=== PATIENT | female | born 1950 | race Caucasian/White ===

== ENCOUNTER 2017-03-27 16:16 | Inpatient (IN) | payer OTHER, BC ==
[~2017-03-27] VITALS: Ht 162.6 cm; Wt 77.6 kg
[2017-03-27 16:16] VITALS: BP_SYST 159
--- NOTE | 2017-03-27 16:16 | NUR ---
Pt was brought to bed 2 by ACLS and report was endorsed by Andrew CHAMPAGNE
--- NOTE | 2017-03-27 16:16 | NUR ---
Pt recieved 1 spray nitro SL and 162mg ASA PO by EMS
--- NOTE | 2017-03-27 16:19 | NUR ---
MILDRED López at bedside examining patient.
[2017-03-27] MEDS ORDERED: ADENOSINE 6MG/2ML VIAL ONE (16:32)
--- NOTE | 2017-03-27 16:36 | NUR ---
Pt was brought in by ACLS, complaining of nausea, dull chest pain that radiates to shoulders and jaw. Pt denies SOB. While on the way home, chest pain became worse and stopped at firehouse. Pt was given 1 Nitro and 162mg of Aspirin en route. Pt was in SVT on arrival. Dr. Mixon is at bedside monitoring patient. No other injuries/complaints per pt or noted.
[2017-03-27] MEDS ORDERED: ADENOSINE 6MG/2ML VIAL IVP ONE (16:45)
[2017-03-27] MEDS ORDERED: NACL 0.9% 1,000 ML IV ONE (16:45)
--- NOTE | 2017-03-27 16:54 | NUR ---
Xray is at bedside.
[2017-03-27 17:01] LABS: BASOPHILS # (AUTO) 0.1 K/uL (0.0-0.2); BASOPHILS % (AUTO) 0.9 % (0.0-2.0); EOSINOPHILS # (AUTO) 0.1 K/uL (0.0-0.4); EOSINOPHILS % (AUTO) 1.1 % (0.0-4.0); HEMATOCRIT 39.9 % (36-48); HEMOGLOBIN 13.2 g/dL (12.0-16.0); LYMPHOCYTES # (AUTO) 1.6 K/uL (1.0-5.5); LYMPHOCYTES % (AUTO) 24.8 % (20.5-51.5); MEAN CORPUSCULAR HEMOGLOBIN 28 pg (27-31); MEAN CORPUSCULAR HGB CONC 33 % (32-36); MEAN CORPUSCULAR VOLUME 84 fL (79.0-98.0); MONOCYTES # (AUTO) 0.3 K/uL (0.0-1.0); MONOCYTES % (AUTO) 5.4 % (1.7-9.3); NEUTROPHILS # (AUTO) 4.3 K/uL (1.8-7.7); NEUTROPHILS % (AUTO) 67.8 % (40.0-70.0); PLATELET COUNT (AUTO) 181 K/uL (130-430); RED BLOOD CELL COUNT(AUTO) 4.74 MIL/uL (4.2-6.2); RED CELL DISTRIBUTION WIDTH 12.9 % (9.0-15.0); WHITE BLOOD COUNT (AUTO) 6.4 K/uL (4.8-10.8)
--- NOTE | 2017-03-27 17:21 | NUR ---
Pt resting comfortably in bed, at bedside.
[2017-03-27 17:24] LABS: CALCIUM 8.8 mg/dL (8.4-11.0); CREATININE 0.78 mg/dL (0.55-1.30); POTASSIUM 3.4 mmol/L (3.5-5.1)
[2017-03-27 17:44] LABS: ALBUMIN 3.9 g/dL (3.4-4.8); TOTAL BILIRUBIN 0.3 mg/dL (0.0-1.0)
[2017-03-27 17:50] LABS: BILIRUBIN,URINE NEGATIVE (NEGATIVE); CLARITY/URINE CLEAR (CLEAR); COLOR,URINE YELLOW (YELLOW); GLUCOSE,URINE NEGATIVE (NEGATIVE); KETONES,URINE NEGATIVE (NEGATIVE); LEUKOCYTE ESTERASE ,URINE 1+ (NEGATIVE); NITRITE, URINE NEGATIVE (NEGATIVE); PH,URINE 5.5 (5.0-8.0); PROTEIN URINE NEGATIVE (NEGATIVE); UROBILINOGEN,URINE 0.2 (0.2-1.0)
--- NOTE | 2017-03-27 18:00 | NUR ---
Pt ambulate to the restroom in stable condition with no noted distress or discomfort.
[2017-03-27 18:01] LABS: BLOOD, URINE TRACE (NEGATIVE)
[2017-03-27] MEDS ORDERED: HYDR25TA4 PO (18:01)
[2017-03-27] MEDS ORDERED: POTA-118 PO (18:01)
[2017-03-27] MEDS ORDERED: ATEN-41 PO (18:01)
[2017-03-27 18:09] LABS: BACTERIA,URINE FEW /HPF (None Seen)
--- NOTE | 2017-03-27 18:11 | NUR ---
Patient will be admitted to care of Dr. Carroll. Admitted to Telemetry unit. Will go to room 135. Belongings list completed. Summary report printed. Report will be given at bedside.
--- NOTE | 2017-03-27 18:17 | NUR ---
ADMISSION NOTE Received patient from ER via guy. Report received from Jo-Ann CHAMPAGNE. Patient admitted with diagnosis of SVT under the care of Dr. Carroll . Patient is awake, alert, oriented X . Patient oriented to hospital room, call light, toileting, pain management and safety-teach back done. Patient informed that will be nurse and that their room number is . Personal belongings checked and Belongings List documented. Call light within reach.
[2017-03-27 18:24] VITALS: BP_SYST 138
--- NOTE | 2017-03-27 18:45 | NUR ---
CLOSING NOTE PT AWAKE, ALERT AND ORIENTED X4, PT DENIES ANY DIZZINESS, CHEST PAIN OR PRESSURE AT THIS TIME, TELEMONITOR READS SINUS RHYTHM, ALL NEEDS ATTENDED TO, SAFETY MEASURES MAINTAINED, CALL LIGHT WITHIN REACH, WILL GIVE REPORT TO FOLLOWING SHIFT
[2017-03-27 19:30] VITALS: BP_SYST 132
--- NOTE | 2017-03-27 19:40 | NUR ---
NOTES RECEIVED THE PT FROM THE DAY NURSE.PT A/A/OX4 NO C/O PAIN OR DISCOMFORT.MONITOR SHOWS SR .PT MOVED TO ROOM 109C DUE TO ROOM MATE CRYING. IV INTACT TO LT HAND ,NO REDNESS OR SWELLING NOTED.FAMILY ARE AT THE BEDSIDE.CALL LIGHT WITHIN REACH SAFETY MEASURES IN PROGRESS.WILL CONTINUE TO MONITOR.
[2017-03-27] MEDS ORDERED: MORPHINE 2 MG/ML INJ. SYRINGE IVP PRN ×2 (20:15)
[2017-03-27] MEDS ORDERED: MAGNESIUM SULFATE 50 ML IV PRN (20:15)
[2017-03-27] MEDS ORDERED: POTASSIUM CHLORIDE 10 MEQ TAB.PRT.SR PO PRN (20:15)
[2017-03-27] MEDS ORDERED: LORazepam 2 MG/ML VIAL IVP PRN (20:15)
[2017-03-27] MEDS ORDERED: ACETAMINOPHEN 325 MG TABLET PO PRN (20:15)
[2017-03-27] MEDS ORDERED: DOCUSATE SODIUM 100 MG CAPSULE PO PRN (20:15)
[2017-03-27] MEDS ORDERED: ONDANSETRON HCL 4 MG/2 ML VIAL IVP PRN (20:15)
[2017-03-27] MEDS ORDERED: ZOLPIDEM TARTRATE 5 MG TABLET PO PRN (20:15)
[2017-03-27] MEDS: HEPARIN SODIUM,PORCINE 5000 UNITS/ML VIAL SUBCUT SCH (21:00)
--- NOTE | 2017-03-27 21:30 | NUR ---
NOTES PT REFUSING THE HEPARIN.
[2017-03-27] MEDS ORDERED: cefTRIAXone 1 GM VIAL ONE (22:16)
[2017-03-27] MEDS: cefTRIAXone 1 GM in D5W 50 ML IV SCH (22:20)
--- NOTE | 2017-03-27 23:05 | NUR ---
CONSULT REASON-- SVT/ELEVATED TROPONIN FOR DOCTOR MARY SPOKE WITH ASHISH
--- NOTE | 2017-03-27 23:41 | NUR ---
NOTES PT RESTING WITH EYES CLOSED,CALL LIGHT WITHIN REACH.CONTINUE TO MONITOR.
[2017-03-28] VITALS (7 sets, daily range): BP systolic 129–150
--- NOTE | 2017-03-28 01:32 | NUR ---
NOTES PT SLEEPING,CALL LIGHT WITHIN REACH.CONTINUE TO MONITOR.
--- NOTE | 2017-03-28 03:50 | NUR ---
notes pt remains asleep,call light within reach.continue to monitor.
--- NOTE | 2017-03-28 05:26 | NUR ---
NOTES PT CONTINUES TO SLEEP.
--- NOTE | 2017-03-28 06:08 | NUR ---
CLOSING NOTES PT REMAINS ASLEEP,WILL ENDORSE THE CARE OF THE PT TO THE DAY NURSE.
[2017-03-28 07:00] LABS: BASOPHILS % (AUTO) 0.6 % (0.0-2.0); EOSINOPHILS # (AUTO) 0.1 K/uL (0.0-0.4); EOSINOPHILS % (AUTO) 0.9 % (0.0-4.0); HEMATOCRIT 36.1 % (36-48); HEMOGLOBIN 12.3 g/dL (12.0-16.0); LYMPHOCYTES % (AUTO) 26.3 % (20.5-51.5); MEAN CORPUSCULAR HEMOGLOBIN 28 pg (27-31); MEAN CORPUSCULAR HGB CONC 34 % (32-36); MEAN CORPUSCULAR VOLUME 83 fL (79.0-98.0); MONOCYTES # (AUTO) 0.4 K/uL (0.0-1.0); MONOCYTES % (AUTO) 5.2 % (1.7-9.3); NEUTROPHILS # (AUTO) 5.2 K/uL (1.8-7.7); PLATELET COUNT (AUTO) 190 K/uL (130-430); RED BLOOD CELL COUNT(AUTO) 4.38 MIL/uL (4.2-6.2); RED CELL DISTRIBUTION WIDTH 12.8 % (9.0-15.0); WHITE BLOOD COUNT (AUTO) 7.7 K/uL (4.8-10.8)
[2017-03-28 07:10] LABS: CALCIUM 8.9 mg/dL (8.4-11.0); CREATININE 0.61 mg/dL (0.55-1.30); POTASSIUM 3.8 mmol/L (3.5-5.1)
--- NOTE | 2017-03-28 07:30 | NUR ---
INITIAL ROUNDS Received pt AAOx4, no s/s resp distress, no c/o chest pain or chest discomfort, no c/o pain. Plan of care for the day reviewed with pt-she verbalized her understanding. Pt observed ambulating in the room with steady gait. Pain management, SVT, skin and safety discussed-teach back done. Contact phone number explained, call light within reach.
[2017-03-28] MEDS: HEPARIN SODIUM,PORCINE 5000 UNITS/ML VIAL SUBCUT SCH ×3 (09:00→20:44)
[2017-03-28] MEDS: ATENOLOL 50 MG TABLET (TENORMIN) PO SCH (09:25)
--- NOTE | 2017-03-28 09:40 | NUR ---
ELEVATED HEART RATE At 0935 pt called nurse stated she was feeling "lightheaded & strange"-also called by telemetry monitor for pt's elevated heart rate. Pt's BP 161/93, HR 153, SAO2 96 % on room air-note pt given 50 mg Tenormin as ordered. Pt now with heart rate 80, no further c/o feeling lightheadedness. Will inform MD. Pt's at bedside. Call light within reach.
--- NOTE | 2017-03-28 10:30 | NUR ---
Follow up cardiac consult with Dr. Aguirre called in the exchange.
--- NOTE | 2017-03-28 13:36 | NUR ---
ROUNDS Pt sitting up in bed visiting with her family, no c/o lightheadedness or heart palpitations. No c/o pain or discomfort. Call light within reach.
--- NOTE | 2017-03-28 15:46 | NUR ---
ECHO Pt now receiving 2D ECHO form research laboratory technician with no s/s resp distress, no c/o pain or discomfort. Pt seen by Dr. Villavicencio-lead oxide mill tender, new orders noted.
--- NOTE | 2017-03-28 18:12 | NUR ---
CLOSING NOTE Pt sitting up in bed visiting with her , no s/s resp distress, no c/o chest pain or discomfort, no c/o lightheadedness. Pt informed of need to not eat or drink anything after midnight for stress test in the morning-she verbalized her understanding. Needs met, call light within reach.
--- NOTE | 2017-03-28 19:30 | NUR ---
notes received the pt from the day nurse.pt a/a/ox4. will be npo after midnight .iv intact to lt hand .family are at the bedside.monitor intact and shows sr. call light within reach .will continue to monitor.
--- NOTE | 2017-03-28 21:08 | NUR ---
NOTES PT WATCHING TV WITH NO COMPLAINTS.CONTINUE TO MONITOR.
[2017-03-28] MEDS: cefTRIAXone 1 GM in D5W 50 ML IV SCH (21:09)
--- NOTE | 2017-03-28 21:22 | NUR ---
paged paged for Dr Villavicencio, dialed . s/w Leia, stated that Dr Kline is on-call.
--- NOTE | 2017-03-28 21:22 | NUR ---
NOTES LAB CALLED WITH A CRITICAL TROPONIN OF [phone].CALL PLACED TO DR HAN.
--- NOTE | 2017-03-28 21:26 | NUR ---
NOTES DR WILLINGHAM WHO IS EVISCERATOR FOR DR HAN CALLED BACK AND WAS GIVEN THE RESULTS,NO NEW ORDERS TAKEN.
--- NOTE | 2017-03-28 23:28 | NUR ---
NOTES PT RESTING WITH EYES CLOSED.CONTINUE TO MONITOR.
[2017-03-29 00:04] VITALS: BP_SYST 126
--- NOTE | 2017-03-29 01:39 | NUR ---
NOTES PT SLEEPING,CONTINUE TO MONITOR.
--- NOTE | 2017-03-29 03:34 | NUR ---
notes pt sleeping,call light within reach,continue to monitor.
[2017-03-29 04:13] VITALS: BP_SYST 122
--- NOTE | 2017-03-29 05:20 | NUR ---
notes pt remains asleep.no distress noted.continue to monitor.
--- NOTE | 2017-03-29 06:00 | NUR ---
closing notes pt resting with eyes closed,will endorse the care of the pt to the day nurse.
[2017-03-29 07:02] LABS: BASOPHILS % (AUTO) 0.7 % (0.0-2.0); EOSINOPHILS % (AUTO) 0.8 % (0.0-4.0); HEMATOCRIT 37.3 % (36-48); HEMOGLOBIN 12.6 g/dL (12.0-16.0); LYMPHOCYTES # (AUTO) 1.8 K/uL (1.0-5.5); LYMPHOCYTES % (AUTO) 31.4 % (20.5-51.5); MEAN CORPUSCULAR HEMOGLOBIN 28 pg (27-31); MEAN CORPUSCULAR HGB CONC 34 % (32-36); MEAN CORPUSCULAR VOLUME 83 fL (79.0-98.0); MONOCYTES # (AUTO) 0.3 K/uL (0.0-1.0); MONOCYTES % (AUTO) 5.5 % (1.7-9.3); NEUTROPHILS # (AUTO) 3.6 K/uL (1.8-7.7); NEUTROPHILS % (AUTO) 61.6 % (40.0-70.0); PLATELET COUNT (AUTO) 187 K/uL (130-430); RED BLOOD CELL COUNT(AUTO) 4.47 MIL/uL (4.2-6.2); RED CELL DISTRIBUTION WIDTH 12.9 % (9.0-15.0); WHITE BLOOD COUNT (AUTO) 5.7 K/uL (4.8-10.8)
[2017-03-29 07:34] LABS: CALCIUM 9.1 mg/dL (8.4-11.0); CREATININE 0.68 mg/dL (0.55-1.30); POTASSIUM 3.6 mmol/L (3.5-5.1)
[2017-03-29 08:20] VITALS: BP_SYST 147
--- NOTE | 2017-03-29 08:20 | NUR ---
OPENING NOTE RECEIVED PATIENT REPORT FROM CUSTOM CLOTHIER NURSE. PATIENT RESTING COMFORTABLY, NO COMPLAINTS OF PAIN AT THIS TIME. NO NOTABLE SIGNS OF DISTRESS AT THIS TIME. PATIENT NPO FOR PROCEDURE STRESS TEST LEXISCAN WITH MUSCLE IMAGING. PATIENT IV SALINE LOCKED PER MD ORDERS. PATIENT BED IN LOWEST POSITION, CALL LIGHT WITHIN REACH, AND SIDE RAILS ARE UP FOR SAFETY MEASURES. WILL CONTINUE TO MONITOR PATIENT FOR CHANGES IN STATUS.
[2017-03-29] MEDS ORDERED: REGADENOSON 0.4 MG/5 ML SYRINGE IVP ONE (09:00)
[2017-03-29] MEDS: HEPARIN SODIUM,PORCINE 5000 UNITS/ML VIAL SUBCUT SCH ×2 (09:56→21:39)
--- NOTE | 2017-03-29 10:35 | NUR ---
NOTE PATIENT IS IN LEXISCAN TESTING.
[2017-03-29] MEDS: ASPIRIN 81 MG TABLET(ECOTRIN) PO SCH (12:25)
[2017-03-29] MEDS: ATENOLOL 50 MG TABLET (TENORMIN) PO SCH (12:27)
--- NOTE | 2017-03-29 12:29 | NUR ---
MEDICATION ADMINISTRATION PATIENT CAME BACK FROM STRESS TEST, ADMINISTERED MORNING MEDICATIONS LATE.
[2017-03-29 12:31] VITALS: BP_SYST 125
--- NOTE | 2017-03-29 14:18 | NUR ---
1400 NOTE PATIENT RESTING COMFORTABLY, NO COMPLAINTS OF PAIN AT THIS TIME. NO NOTABLE SIGNS OF DISTRESS AT THIS TIME. PATIENTS IS AT THE BEDSIDE FOR COMFORT. PATIENT IV SALINE LOCKED PER MD ORDERS. PATIENT BED IN LOWEST POSITION, CALL LIGHT WITHIN REACH, AND SIDE RAILS ARE UP FOR SAFETY MEASURES. WILL CONTINUE TO MONITOR PATIENT FOR CHANGES IN STATUS.
--- NOTE | 2017-03-29 16:29 | NUR ---
1600 NOTE PATIENT RESTING COMFORTABLY, NO COMPLAINTS OF PAIN AT THIS TIME. NO NOTABLE SIGNS OF DISTRESS AT THIS TIME. AWAITING RESULTS, PER CARDIO, IF LEXISCAN RESULTS COME BACK NEGATIVE OKAY TO DISCHARGE. PATIENT IV SALINE LOCKED PER MD ORDERS. PATIENT BED IN LOWEST POSITION, CALL LIGHT WITHIN REACH, AND SIDE RAILS ARE UP FOR SAFETY MEASURES. WILL CONTINUE TO MONITOR PATIENT FOR CHANGES IN STATUS.
[2017-03-29 16:42] VITALS: BP_SYST 112
--- NOTE | 2017-03-29 18:35 | NUR ---
PAGED PAGED REGARDING DIET ORDER. LEFT DR. HUERTA MESSAGE TO RETURN CALL.
--- NOTE | 2017-03-29 19:50 | NUR ---
ROUNDS PATIENT IN BED, WATCHING TV, FAMILY AT THE BEDSIDE, VITALS STABLE. DENIES ANY CHEST PAIN NOR DISCOMFORT AT THIS TIME. ASSESSMENT DONE AND DOCUMENTED. SEE FLOWSHEET. NEEDS ATTENDED TO. SAFETY MEASURES IN PLACED. BED IN LOW AND LOCKED POSITION. CALL LIGHT PLACED WITHIN REACH.
--- NOTE | 2017-03-29 21:15 | NUR ---
MEDICATION DUE MEDICATIONS GIVEN SCHEDULED, TOLERATED WELL. WILL CONTINUE TO MONITOR.
[2017-03-29] MEDS: cefTRIAXone 1 GM in D5W 50 ML IV SCH (21:37)
--- NOTE | 2017-03-30 00:05 | NUR ---
PATIENT RESTING: Patient resting quietly. No acute distress noted. Vital signs within normal range.
[2017-03-30 00:43] VITALS: BP_SYST 128
--- NOTE | 2017-03-30 02:10 | NUR ---
ROUNDS PATIENT ASLEEP, NO SOB NOTED, VITALS STABLE. WILL CONTINUE TO MONITOR.
[2017-03-30 03:31] VITALS: BP_SYST 130
--- NOTE | 2017-03-30 04:00 | NUR ---
PATIENT RESTING: Patient resting quietly. No acute distress noted. Vital signs within normal range.
--- NOTE | 2017-03-30 06:46 | NUR ---
CLOSING NOTES PATIENT AWAKE, VITALS STABLE, DENIES ANY PAIN AND DISCOMFORT AT THIS TIME. ALL NEEDS ATTENDED TO. CALL LIGHT PLACED WITHIN REACH.
[2017-03-30 06:48] LABS: BASOPHILS % (AUTO) 0.7 % (0.0-2.0); EOSINOPHILS # (AUTO) 0.1 K/uL (0.0-0.4); EOSINOPHILS % (AUTO) 1.1 % (0.0-4.0); HEMATOCRIT 36.8 % (36-48); HEMOGLOBIN 12.4 g/dL (12.0-16.0); LYMPHOCYTES # (AUTO) 1.6 K/uL (1.0-5.5); LYMPHOCYTES % (AUTO) 27.5 % (20.5-51.5); MEAN CORPUSCULAR HEMOGLOBIN 28 pg (27-31); MEAN CORPUSCULAR HGB CONC 34 % (32-36); MEAN CORPUSCULAR VOLUME 83 fL (79.0-98.0); MONOCYTES # (AUTO) 0.4 K/uL (0.0-1.0); MONOCYTES % (AUTO) 6.1 % (1.7-9.3); NEUTROPHILS # (AUTO) 3.8 K/uL (1.8-7.7); NEUTROPHILS % (AUTO) 64.6 % (40.0-70.0); PLATELET COUNT (AUTO) 198 K/uL (130-430); RED BLOOD CELL COUNT(AUTO) 4.43 MIL/uL (4.2-6.2); RED CELL DISTRIBUTION WIDTH 13.1 % (9.0-15.0); WHITE BLOOD COUNT (AUTO) 5.9 K/uL (4.8-10.8)
[2017-03-30 07:02] LABS: CALCIUM 9.2 mg/dL (8.4-11.0); CREATININE 0.7 mg/dL (0.55-1.30)
[2017-03-30 08:42] VITALS: BP_SYST 140
--- NOTE | 2017-03-30 08:42 | NUR ---
OPENING NOTE RECEIVED PATIENT REPORT FROM REMOTE SENSING TECHNOLOGIST NURSE. PATIENT RESTING COMFORTABLY, NO COMPLAINTS OF PAIN AT THIS TIME. NO NOTABLE SIGNS OF DISTRESS AT THIS TIME. PATIENT IV SALINE LOCKED PER MD ORDERS. PATIENT BED IN LOWEST POSITION, CALL LIGHT WITHIN REACH, AND SIDE RAILS ARE UP FOR SAFETY MEASURES. WILL CONTINUE TO MONITOR PATIENT FOR CHANGES IN STATUS. PATIENT POSSIBLE DISCHARGE DEPENDING UPON RESULTS, WILL DISCUSS WITH DR. HUERTA AT HIS ARRIVAL. PATIENT WOULD LIKE TO GO HOME.
[2017-03-30] MEDS: HEPARIN SODIUM,PORCINE 5000 UNITS/ML VIAL SUBCUT SCH (09:00)
[2017-03-30] MEDS: ATENOLOL 50 MG TABLET (TENORMIN) PO SCH (09:07)
[2017-03-30] MEDS: ASPIRIN 81 MG TABLET(ECOTRIN) PO SCH (09:07)
--- NOTE | 2017-03-30 10:49 | NUR ---
1000 NOTE PATIENT RESTING COMFORTABLY, NO COMPLAINTS OF PAIN AT THIS TIME. NO NOTABLE SIGNS OF DISTRESS AT THIS TIME. PATIENT IV SALINE LOCKED PER MD ORDERS. PATIENT BED IN LOWEST POSITION, CALL LIGHT WITHIN REACH, AND SIDE RAILS ARE UP FOR SAFETY MEASURES. WILL CONTINUE TO MONITOR PATIENT FOR CHANGES IN STATUS. PATIENT DISCHARGE ORDERS TO GO HOME AND FOLLOW UP. WILL GET DISCHARGE PAPERWORK STARTED.
[2017-03-30 11:00] VITALS: BP_SYST 140
--- NOTE | 2017-03-30 11:39 | NUR ---
D/C Patient Patient given medication reconciliation form and D/C instructions. Exit Care provided. Patient verbalized understanding. MD discussed with patient the results and treatment provided. Ambulatory with steady gait for discharge to home. Patient in stable condition, ID band removed. IV catheter removed, intact and dressing applied, no active bleeding. Recommendation for Aspirin 81 mg to be taken daily. Follow up with PCP in [address] Villavicencio/Dr. Pope office given to patient. All belongings sent with patient.
--- NOTE | 2017-03-30 11:40 | NUR ---
Medical Records Medical records release was given and filled out by patient. Placed on chart to go to medical records. Informed of 7-10 day release period.
[2017-03-30 11:47] VITALS: BP_SYST 128
--- NOTE | 2017-04-01 13:29 | NUR ---
Discharge Follow Up Phone Call TANNING CONSULTANT phoned patient, . Patient stated she was doing well. She had a follow up appointment with her PCP today, 04/01/17. She began taking asa 81mg. She will follow up with the credentialer. She asked when her medical records would be ready and had no other questions or concerns. TANNING CONSULTANT forwarded the call to Medical Records.
== END 2017-03-30 11:39 | disposition home or self-care (01) | DRG 281 ==
LOC: SED 16:16 → STU 17:57
PROVIDERS: ADMIT General Practice; ATTEND General Practice
DX: I21.4 Non-ST elevation (NSTEMI) myocardial infarction (principal); I47.1 Supraventricular tachycardia; I10 Essential (primary) hypertension; N39.0 Urinary tract infection, site not specified; E87.6 Hypokalemia; Z88.0 Allergy status to penicillin; Z88.1 Allergy status to other antibiotic agents
CPT/HCPCS: 36415; 71010; 80048; 80053; 80061; 81000-TC; 83036; 83735-TC; 83880; 84443-TC; 84484; 85025; 87086; 93005; 93017; 93306; 96361; 96374; 99285; J0153; J0696; J1644; J2785; J7030; J7050; J7060